=== PATIENT | female | born 1990 | race Caucasian/White ===

== ENCOUNTER 2025-02-09 21:13 | Emergency (ER) | payer MEDICARE, MEDICAID ==
[~2025-02-09] VITALS: Ht 154.9 cm; Wt 38.6 kg
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
[2025-02-09 21:53] VITALS: TEMP 99.4
[2025-02-09 22:00] VITALS: BP 120/83; PULSE 81; RESP 15; O2SAT 98
--- NOTE | 2025-02-10 06:53 | ELECTROCARDIOGRAPH REPORT ---
[facility] Test Date: 2025-02-09 Test Time: 21:17:09 Pat Name: CANDE NESS Department: EMERGENCY ROOM Room: Gender: F [employer]: PM : 1990 Requested By: LANDON FERREIRA Order Number: [id number] Reading MD: Measurements Intervals [place] Rate: 68 P: 63 VT: 123 QRS: 77 QRSD: 94 T: 73 QT: 368 QTc: 392 Interpretive Statements Sinus rhythm RSR' in V1 or V2, right VCD or RVH Please click the below link to view image of tracing.
== END 2025-02-09 22:01 | disposition home or self-care (01) ==
LOC: ER 21:13
DX: Z04.1 Encounter for examination and observation following transport accident (principal); Z79.899 Other long term (current) drug therapy; W22.8XXA Striking against or struck by other objects, initial encounter; Y93.89 Activity, other specified; Y92.89 Other specified places as the place of occurrence of the external cause; Y99.8 Other external cause status
CPT/HCPCS: 93005; 99283